=== PATIENT | female | born 1990 | race Caucasian/White ===

== ENCOUNTER 2016-09-16 02:19 | Emergency (ER) | payer BC ==
[~2016-09-16] VITALS: Ht 162.6 cm; Wt 101.2 kg
[2016-09-16] MEDS ORDERED: KEFLEX500 MG PO (03:59)
[2016-09-16] MEDS ORDERED: MOTRIN600 MG PO (03:59)
[2016-09-16 04:11] VITALS: BP 135/85
== END 2016-09-16 04:12 | disposition home or self-care (01) ==
LOC: EXP 02:19 → EME 02:19 → EXP 04:12
DX: K04.7 Periapical abscess without sinus (principal); K02.9 Dental caries, unspecified; Z88.0 Allergy status to penicillin; Z72.0 Tobacco use
CPT/HCPCS: 99281; 99283